=== PATIENT | female | born 1955 | race Caucasian/White ===

== ENCOUNTER 2019-01-23 10:41 | Day surgery (SDC) | payer OTHER ==
[~2019-01-23 10:41] MED LIST: Lactated Ringers 1,000 ML IV SCH
--- NOTE | 2019-01-23 11:41 | PCM.PREANE ---
Preanesthetic Assessment - Anesthesia/Transfusion/Family Hx Anesthesia History: Prior Anesthesia Without Reaction Family History of Anesthesia Reaction: No Transfusion History: Unknown - Review of Systems General: No Symptoms Pulmonary: No Symptoms Cardiovascular: No Symptoms Gastrointestinal: No Symptoms Neurological: No Symptoms Other: Reports: None - Physical Assessment NPO Status Date: 01/23/19 NPO Status Time: 09:00 O2 Sat by Pulse Oximetry: 98 Respiratory Rate: 16 Vital Signs: Last Vital Signs Temp 96.1 F 01/23/19 10:55 Pulse 96 01/23/19 10:55 Resp 16 01/23/19 10:55 BP 167/86 H 01/23/19 10:55 Pulse Ox 98 01/23/19 10:55 Height: 5 ft 1 in Weight: 107.955 kg ASA Class: 2 Mental Status: Alert & Oriented x3 Airway Class: Mallampati = 2 Dentition: Reports: Normal Dentition ROM/Head Extension: Full Lungs: Clear to Auscultation, Normal Respiratory Effort Cardiovascular: Regular Rate, Regular Rhythm - Allergies Allergies/Adverse Reactions: Allergies Allergy/AdvReac Type Severity Reaction Status Date / Time No Known Allergies Allergy Verified 01/20/19 10:53 - Blood Blood Available: No - Anesthesia Plan Pre-Op Medication Ordered: None - Acknowledgements Anesthesia Type Planned: General Anesthesia Pt an Appropriate Candidate for the Planned Anesthesia: Yes Alternatives and Risks of Anesthesia Discussed w Pt/Guardian: Yes Pt/Guardian Understands and Agrees with Anesthesia Plan: Yes Additional Comments: anes prob list: dm2, htn, PLAN: tiva PreAnesthesia Questionnaire HEENT History: Reports: Allergic Rhinitis, Other (See Below) Other HEENT History: wears glasses, recurrent sinus infection Cardiovascular History: Reports: Hypertension Respiratory History: Reports: Asthma, Other (See Below) Other Respiratory History: seasonall asthma due to sinus infections Gastrointestinal History: Reports: GERD, Helicobacter Pylori, Irritable Bowel Syndrome Genitourinary History: Reports: 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: Musculoskeletal History: Reports: Back Pain, Chronic Neurological History: Reports: Concussion Psychiatric History: Reports: Anxiety, Depression Endocrine/Metabolic History: Reports: Diabetes, Type II, Hypothyroidism, Obesity /BMI 30+ Hematologic History: Reports: Other (See Below) Other Hematologic History: unknown if blood transfusion, "may have had transfusion with my hysterectomy" Immunologic History: Reports: None Oncologic (Cancer) History: Reports: None Dermatologic History: Reports: Eczema - Past Surgical History Head Surgeries/Procedures: Reports: None HEENT Surgical History: Reports: Adenoidectomy, Tonsillectomy Cardiovascular Surgical History: Reports: None Respiratory Surgical History: Reports: None GI Surgical History: Reports: Colonoscopy Female Surgical History: Reports: D&C, Hysterectomy Endocrine Surgical History: Reports: None Neurological Surgical History: Reports: None Musculoskeletal Surgical History: Reports: Carpal Tunnel Oncologic Surgical History: Reports: None Dermatological Surgical History: Reports: None - SUBSTANCE USE Smoking Status *Q: Never Smoker Recreational Drug Use History: No - HOME MEDS Home Medications: Home Meds Albuterol Sulfate [Proair Hfa] 1 - 2 puff INH ASDIRECTED PRN 01/20/19 [History] Cetirizine [ZyrTEC] 10 mg PO DAILY 01/20/19 [History] Cholecalciferol (Vitamin D3) [Vitamin D3] 2,000 units PO DAILY 01/20/19 [History ] Ibuprofen 1 - 2 tab PO ASDIRECTED PRN 01/20/19 [History] Krill/Om-3/DHA/EPA/Phospho/Ast [Krill Oil 1,000 mg Softgel] 1 tab PO DAILY 01/20 [History] Levothyroxine Sodium [Levoxyl] 50 mcg PO DAILY 01/20/19 [History] Losartan Potassium 100 mg PO DAILY 01/20/19 [History] [place]-3S/DHA/Epa/Fish Oil [Fish Oil [place]-3 Softgel] 1 tab PO DAILY 01/20/19 [ History] atorvaSTATin Calcium [Atorvastatin Calcium] 20 mg PO DAILY 01/20/19 [History] metFORMIN HCl [Metformin HCl] 1,000 mg PO BID 01/20/19 [History] - CURRENT (IN HOUSE) MEDS Current Meds: Current Medications Lactated Ringer's (Ringers, Lactated) 1,000 mls @ 125 mls/hr IV ASDIRECTED CL Last Admin: 01/23/19 11:10 Dose: 125 mls/hr
[2019-01-23] MEDS ORDERED: Propofol 200 MG/20 ML SDV ONE (12:00)
[2019-01-23] MEDS ORDERED: fentaNYL 100 MCG/2 ML SDV ONE (12:07)
[2019-01-23] MEDS ORDERED: Midazolam 1 MG/ML 2 ML SDV ONE (12:07)
--- NOTE | 2019-01-23 12:52 | PCM.OPNOTE ---
- General Post-Op/Procedure Note Date of Surgery/Procedure: 01/23/19 Operative Procedure(s): Colonoscopy with cold transverse colon and ascending colon, polypectomies Pre Op Diagnosis: Change in bowel habits. Desire for colorectal cancer screening. Post-Op Diagnosis: Ascending colon and transverse colon polyps Anesthesia Technique: MAC (ASA II) Primary Surgeon: Arnulfo Khoury Condition: Good Free Text/Narrative:: DICTATION 517388 CPT CODE 43564
[2019-01-23] MEDS ORDERED: Lactated Ringers 1,000 ML IV SCH (13:00)
--- NOTE | 2019-01-23 13:52 | PCM48HPAN ---
Post Anesthesia Note - EVALUATION WITHIN 48HRS OF ANESTHETIC Vital Signs in Normal Range: Yes Patient Participated in Evaluation: Yes Respiratory Function Stable: Yes Airway Patent: Yes Cardiovascular Function Stable: Yes Hydration Status Stable: Yes Pain Control Satisfactory: Yes Nausea and Vomiting Control Satisfactory: Yes Mental Status Recovered: Yes Resp Rate: 16
--- NOTE | 2019-01-23 13:52 | PCM.POSTAN ---
POST ANESTHESIA ASSESSMENT - MENTAL STATUS Mental Status: Alert, Oriented - RESPIRATORY Respiratory Status: Respiratory Rate WNL, Airway Patent, O2 Saturation Stable - CARDIOVASCULAR CV Status: Pulse Rate WNL, Blood Pressure Stable - GASTROINTESTINAL GI Status: No Symptoms - POST OP HYDRATION Hydration Status: Adequate & Stable
--- NOTE | 2019-01-23 18:17 | OR ---
SURGEON: Arnulfo Khoury M.D. DATE OF PROCEDURE: 01/23/2019 OPERATION PERFORMED: Colonoscopy with cold transverse colon and ascending colon polypectomies. ANESTHESIA: MAC. ASA CLASSIFICATION: 2. PREOPERATIVE DIAGNOSES: 1. Change in bowel habits. 2. Desire for colorectal cancer screening. POSTOPERATIVE DIAGNOSIS: Transverse colon and ascending colon polyps. DESCRIPTION OF PROCEDURE: The patient was taken to the endoscopy room and positioned on the endoscopy table in the left lateral decubitus position. Time-out was called for appropriate identification of the patient and procedure. Monitored anesthesia care was provided. The colonoscope was inserted into the rectum and advanced with minimal difficulty to the cecum where the colonoscope was retroflexed to visualize the ascending colon from below. The colonoscope was then straightened and slowly withdrawn. Two polyps were encountered in the ascending colon in the same area and removed with the cold biopsy forceps. The remainder of the ascending colon, proximal and mid transverse colon showed no tumors, polyps, or diverticula. One small polyp was encountered in the transverse colon and likewise removed with the cold biopsy forceps. The remainder of the transverse colon, splenic flexure, descending colon, sigmoid colon, and rectum showed no tumors, polyps, diverticula, or angiodysplastic changes. Once the colonoscope was withdrawn to the rectum, it was retroflexed to visualize the anal orifice from above. Again, no tumors or polyps were seen and there were no acute hemorrhoidal changes. The colonoscope was then straightened, the rectum aspirated, and the colonoscope removed. The patient tolerated the procedure well and was taken to recovery room in stable condition. CRYSTAL / MARIAM /[id number]
== END 2019-01-23 13:55 | disposition home or self-care (01) ==
LOC: MW.SDS 10:41
PROVIDERS: ATTEND Surgery
DX: D12.3 Benign neoplasm of transverse colon (principal); D12.2 Benign neoplasm of ascending colon; I10 Essential (primary) hypertension; E11.9 Type 2 diabetes mellitus without complications; E03.9 Hypothyroidism, unspecified; E78.5 Hyperlipidemia, unspecified; F32.9 Major depressive disorder, single episode, unspecified; J45.909 Unspecified asthma, uncomplicated; E66.9 Obesity, unspecified; Z68.41 Body mass index [BMI] 40.0-44.9, adult; Z79.84 Long term (current) use of oral hypoglycemic drugs; Z79.899 Other long term (current) drug therapy
CPT/HCPCS: J2250; J2704; J3010; J7120

== ENCOUNTER 2021-01-25 08:30 | Inpatient (IN) | payer OTHER ==
[~2021-01-25 08:30] MED LIST changes: +Albuterol 0.083% 2.5 MG/3 ML Neb Soln NEB PRN; +Famotidine 20 MG/2 ML SDV IVPUSH SCH; +Famotidine 20 MG/2 ML SDV ONE; +HYDROmorphone 2 MG/ML Syringe IVPUSH PRN; -Lactated Ringers 1,000 ML IV SCH; +Metoclopramide 10 MG/2 ML SDV IVPUSH PRN; +Morphine 10 MG/ML Syringe IVPUSH PRN; +Naloxone 0.4 MG/ML Syringe IVPUSH PRN; +Ondansetron 4 MG/2 ML SDV IVPUSH PRN; +Ropivacaine 49.25 ML, Ketorolac 30 MG, EPINEPHrine 0.5 MG, cloNIDine 80 MCG in Sodium C... INJECT SCH; +Scopolamine 1.5 MG Transdermal Patch TRDERM SCH; +Tranexamic Acid 1,000 MG in Sodium Chloride 0.9% 100 ML IV ONE; +ceFAZolin 2 GM in Premix Bag 1 BAG IV SCH; +fentaNYL 100 MCG/2 ML SDV IVPUSH PRN
[2021-01-25] MEDS ORDERED: Glycopyrrolate 0.2 MG/ML SDV ONE (08:45)
[2021-01-25] MEDS ORDERED: Metoclopramide 10 MG/2 ML SDV ONE (08:45)
[2021-01-25] MEDS ORDERED: Ondansetron 4 MG/2 ML SDV ONE (08:45)
[2021-01-25] MEDS ORDERED: Dexamethasone 4 MG/ML 5 ML MDV ONE (08:45)
[2021-01-25] MEDS ORDERED: propofoL 100 ML ONE (08:45)
[2021-01-25] MEDS ORDERED: Ketorolac 30 MG/ML SDV ONE (08:45)
[2021-01-25] MEDS ORDERED: Dexmedetomidine 200 MCG/2 ML SDV ONE (08:45)
[2021-01-25] MEDS ORDERED: Ketamine 500 mg/10 ML MDV ONE (08:46)
[2021-01-25] MEDS ORDERED: EPINEPHrine 1 MG/ML SDV ONE (08:46)
[2021-01-25] MEDS ORDERED: Sodium Chloride 0.9% 20 ML ONE (08:52)
[2021-01-25] MEDS ORDERED: Bupivacaine 0.5% 30 ML SDV ONE (08:58)
[2021-01-25] MEDS ORDERED: Morphine 10 MG/ML Syringe ONE (08:59)
[2021-01-25] MEDS: Lactated Ringers 1,000 ML IV SCH ×2 (09:08→15:50)
--- NOTE | 2021-01-25 09:15 | PCM.PREANE ---
Preanesthetic Assessment - Anesthesia/Transfusion/Family Hx Anesthesia History: Prior Anesthesia Without Reaction Family History of Anesthesia Reaction: No Transfusion History: No Prior Transfusion(s) - Review of Systems General: No Symptoms Pulmonary: No Symptoms Cardiovascular: Dyspnea on Exertion Gastrointestinal: Diarrhea Neurological: No Symptoms Other: Reports: Thyroid Problems, Anxiety - Physical Assessment NPO Status Date: 01/25/21 NPO Status Time: 00:00 Height: 5 ft 1 in Weight: 232 lb ASA Class: 3 Mental Status: Alert & Oriented x3 Airway Class: Mallampati = 2 Dentition: Reports: Normal Dentition Thyro-Mental Finger Breadths: 2 Mouth Opening Finger Breadths: 3 ROM/Head Extension: Full Lungs: Clear to Auscultation, Normal Respiratory Effort Cardiovascular: Regular Rate, Regular Rhythm - Allergies Allergies/Adverse Reactions: Allergies Allergy/AdvReac Type Severity Reaction Status Date / Time No Known Allergies Allergy Verified 01/19/21 07:21 - Blood Blood Available: Yes Product(s) Available: PRBC - Anesthesia Plan Pre-Op Medication Ordered: Other - Acknowledgements Anesthesia Type Planned: General Anesthesia Pt an Appropriate Candidate for the Planned Anesthesia: Yes Alternatives and Risks of Anesthesia Discussed w Pt/Guardian: Yes Pt/Guardian Understands and Agrees with Anesthesia Plan: Yes PreAnesthesia Questionnaire HEENT History: Reports: Allergic Rhinitis, Other (See Below) Other HEENT History: wears glasses, recurrent sinus infection Cardiovascular History: Reports: Hypertension Respiratory History: Reports: Asthma, Other (See Below) Other Respiratory History: seasonall asthma due to sinus infections Gastrointestinal History: Reports: GERD, Helicobacter Pylori, Irritable Bowel Syndrome Genitourinary History: Reports: 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: Musculoskeletal History: Reports: Back Pain, Chronic Other Musculoskeletal History: intermittent back pain, DJD Neurological History: Reports: Concussion Psychiatric History: Reports: Anxiety, Depression Endocrine/Metabolic History: Reports: Diabetes, Type II, Hypothyroidism, Obesity/BMI 30+ Hematologic History: Reports: Other (See Below) Other Hematologic History: unknown if blood transfusion, "may have had transfusion with my hysterectomy" Immunologic History: Reports: None Oncologic (Cancer) History: Reports: None Dermatologic History: Reports: Eczema - Past Surgical History Head Surgeries/Procedures: Reports: None HEENT Surgical History: Reports: Adenoidectomy, Tonsillectomy Cardiovascular Surgical History: Reports: None Respiratory Surgical History: Reports: None GI Surgical History: Reports: Colonoscopy Female Surgical History: Reports: D&C, Hysterectomy Endocrine Surgical History: Reports: None Neurological Surgical History: Reports: None Musculoskeletal Surgical History: Reports: Carpal Tunnel Oncologic Surgical History: Reports: None Dermatological Surgical History: Reports: None - SUBSTANCE USE Tobacco Use Status *Q: Never Tobacco User - HOME MEDS Home Medications: Home Meds Cetirizine [ZyrTEC] 10 mg PO DAILY 01/20/19 [History] Cholecalciferol (Vitamin D3) [Vitamin D3] 2,000 units PO DAILY 01/20/19 [History] Krill/Om-3/DHA/EPA/Phospho/Ast [Krill Oil 1,000 mg Softgel] 1 tab PO DAILY 01/20/19 [History] Levothyroxine Sodium [Levoxyl] 75 mcg PO ASDIRECTED 01/20/19 [History] Losartan Potassium 100 mg PO DAILY 01/20/19 [History] metFORMIN HCl [Metformin HCl] 1,000 mg PO BID 01/20/19 [History] Areds 2 1 tab PO DAILY 01/19/21 [History] Citalopram Hydrobromide [Celexa] 20 mg PO DAILY 01/19/21 [History] Levothyroxine Sodium [Levoxyl] 50 mcg PO ASDIRECTED 01/19/21 [History] atorvaSTATin Calcium [Atorvastatin Calcium] 20 mg PO DAILY 01/19/21 [History] - CURRENT (IN HOUSE) MEDS Current Meds: Current Medications Albuterol (Albuterol 0.083% 2.5 Mg/3 Ml Neb Soln) 2.5 mg NEB ONETIME PRN PRN Reason: Wheezing Droperidol (Droperidol 5 Mg/2 Ml Sdv) 0.625 mg IVPUSH ONETIME PRN PRN Reason: Nausea/Vomiting Famotidine (Famotidine 20 Mg/2 Ml Sdv) 40 mg IVPUSH ONARRIVE CL Fentanyl (Fentanyl 100 Mcg/2 Ml Sdv) 50 mcg IVPUSH Q5M PRN PRN Reason: Pain (mild 1-3) Hydromorphone HCl (Hydromorphone 2 Mg/Ml Syringe) 1 mg IVPUSH Q10M PRN PRN Reason: Pain (moderate 4-6) Ropivacaine 49.25 ml/Ketorolac Tromethamine 30 mg/Epinephrine HCl 0.5 mg/Clonidine HCl 80 mcg/ Sodium Chloride 75 mls @ 50 mls/sec INJECT ASDIRECTED [facility] Cefazolin Sodium/Dextrose 2 gm (/ Premix) 50 mls @ 100 mls/hr IV ONCALL [facility] Lactated Ringer's (Ringers, Lactated) 1,000 mls @ 100 mls/hr IV ASDIRECTED [facility] Last Admin: 01/25/21 09:08 Dose: 100 mls/hr Documented by: Metoclopramide HCl (Metoclopramide 10 Mg/2 Ml Sdv) 10 mg IVPUSH ONETIME PRN PRN Reason: Nausea/Vomiting Morphine Sulfate (Morphine 10 Mg/Ml Syringe) 2 mg IVPUSH Q10M PRN PRN Reason: Pain (severe 7-10) Naloxone HCl (Naloxone 0.4 Mg/Ml Syringe) 0.1 mg IVPUSH ASDIRECTED PRN PRN Reason: Respiratory Depression Ondansetron HCl (Ondansetron 4 Mg/2 Ml Sdv) 4 mg IVPUSH ONETIME PRN PRN Reason: Nausea/Vomiting Scopolamine (Scopolamine 1.5 Mg Transdermal Patch) 1.5 mg TRDER ONARRIVE [facility] Last Admin: 01/25/21 09:08 Dose: 1.5 mg Documented by: Discontinued Medications Bupivacaine HCl (Bupivacaine 0.5% 30 Ml Sdv) Confirm Administered Dose 60 ml .ROUTE .STK-MED ONE Stop: 01/25/21 08:59 Dexamethasone (Dexamethasone 4 Mg/Ml 5 Ml Mdv) Confirm Administered Dose 20 mg .ROUTE .STK-MED ONE Stop: 01/25/21 08:46 Dexmedetomidine HCl (Dexmedetomidine 200 Mcg/2 Ml Sdv) Confirm Administered Dose 200 mcg .ROUTE .STK-MED ONE Stop: 01/25/21 08:46 Epinephrine HCl (Epinephrine 1 Mg/Ml Sdv) Confirm Administered Dose 1 mg .ROUTE .STK-MED ONE Stop: 01/25/21 08:47 Famotidine (Famotidine 20 Mg/2 Ml Sdv) Confirm Administered Dose 40 mg .ROUTE .STK-MED ONE Stop: 01/25/21 07:50 Glycopyrrolate (Glycopyrrolate 0.2 Mg/Ml Sdv) Confirm Administered Dose 0.2 mg .ROUTE .STK-MED ONE Stop: 01/25/21 08:46 Tranexamic Acid 1,000 mg/ (Sodium Chloride) 110 mls @ 600 mls/hr IV ASDIRECTED ONE Stop: 01/25/21 08:10 Acetaminophen (Ofirmev 1000 Mg/100 Ml) Confirm Administered Dose 100 mls @ as directed .ROUTE .STK-MED ONE Stop: 01/25/21 08:46 Propofol (Diprivan 100 Ml) Confirm Administered Dose 100 mls @ as directed .ROUTE .STK-MED ONE Stop: 01/25/21 08:46 Sodium Chloride (Normal Saline) Confirm Administered Dose 20 mls @ as directed .ROUTE .STK-MED ONE Stop: 01/25/21 08:53 Ketamine HCl (Ketamine 500 Mg/10 Ml Mdv) Confirm Administered Dose 500 mg .ROUTE .STK-MED ONE Stop: 01/25/21 08:47 Ketorolac Tromethamine (Ketorolac 30 Mg/Ml Sdv) Confirm Administered Dose 30 mg .ROUTE .STK-MED ONE Stop: 01/25/21 08:46 Lidocaine HCl (Lidocaine 1% 5 Ml Sdv) Confirm Administered Dose 10 ml .ROUTE .STK-MED ONE Stop: 01/25/21 08:46 Metoclopramide HCl (Metoclopramide 10 Mg/2 Ml Sdv) Confirm Administered Dose 10 mg .ROUTE .STK-MED ONE Stop: 01/25/21 08:46 Morphine Sulfate (Morphine 10 Mg/Ml Syringe) Confirm Administered Dose 10 mg .ROUTE .STK-MED ONE Stop: 01/25/21 09:00 Ondansetron HCl (Ondansetron 4 Mg/2 Ml Sdv) Confirm Administered Dose 4 mg .ROUTE .STK-MED ONE Stop: 01/25/21 08:46
--- NOTE | 2021-01-25 13:17 | PCM.OPNOTE ---
- General Post-Op/Procedure Note Date of Surgery/Procedure: 01/25/21 Operative Procedure(s): Right total knee replacement using [employer] knee system Findings: Right knee grade 4 medial compartment osteoarthritis with complete loss of cartilage, eburnated bone, marginal osteophytes. Patellofemoral joint showed grade 1 changes of the patella with small marginal osteophytes. Pre Op Diagnosis: Right knee grade 4 medial compartment osteoarthritis Post-Op Diagnosis: Right knee grade 4 medial compartment osteoarthritis Anesthesia Technique: Regional Block, Spinal Primary Surgeon: Lakhwinder Tracy Aws Solution Architect: Jacki Le Aws Solution Architect Was Necessary: Patient positioning and retraction during surgery Pathology: Bone cuts to pathology EBL in mLs: 25 Complications: None Condition: Good Free Text/Narrative:: Patient is a 65-year-old female with severe right knee medial compartment osteoarthritis. She has failed nonoperative management. We discussed the risks and benefits of total knee replacement surgery. All questions were answered. Patient elected to proceed with surgery and consented to the procedure. Patient was medically clear for surgery. Patient was taken to the operating room. After adequate spinal anesthesia she was placed in a supine position. A tourniquet is placed around the right proximal thigh. The right lower extremities prepped and draped in usual sterile manner. The leg elevated the tourniquet inflated. Skin was incised with a scalpel for a midline incision centered over the patella and just medial to the tibial tubercle. Subtenons tissue was incised electrocautery. A medial parapatellar arthrotomy was performed. The patella was everted and retracted laterally. Soft tissues were excised. The distal femoral cut was made with an intramedullary alignment guide. The f emur was sized to a size 2. The distal femoral cuts were then made with a constrained cutting guide. The trial component was too wide so a #2 narrow component was used. Lug holes were punched. The tibia was cut with a intramedullary alignment guide. The tibia was sized to a size 2. The keel and stem were punched. 9 mm polyethylene showed that the knee had good range of motion and stability throughout the range of motion. Cruciate retaining components were used. The patella did not require resurfacing as there were only grade 1 changes. The patella tracked well. Marginal osteophytes were removed with a rongeur. Trial components were removed. The surfaces were pulse lavaged. Components were then sequentially cemented with antibiotic cement. #2 tibia was inserted and excess cement removed. The 9 mm polyethylene component was locked in place. The #2 tibia was then cemented and excess cement removed. The knee was brought into extension to allow the cement to harden. Once the cemented hardened, the knee was reinspected and any excess cement removed. The knee was again pulse lavaged. The retinaculum and quadriceps tendon were repaired with interrupted running #1 Vicryl suture. Subcutaneous tissue was closed with interrupted 2-0 Vicryl suture. Skin was closed with a running 3-0 Monocryl subcuticular suture. A sterile dressing was applied. Patient was accompanied to the recovery room in stable condition. Pain medication: Ibuprofen or Toradol, acetaminophen, oxycodone Venous thromboembolism prophylaxis: Aspirin 162 mg enteric-coated p.o. daily for 90 days Prophylactic biotics: Ancef IV for 2 doses and then oral antibiotics for 1 to 2 weeks until incision is healed based on risk of BMI and diabetes Restrictions: Patient is weightbearing as tolerated on her right lower extremi ty. She will receive physical therapy according to the total knee arthroplasty protocol. She has no specific restrictions.
[2021-01-25] MEDS ORDERED: Aluminum Hydroxide/Magnesium Hydroxide/Simethicone Susp 30 ML Cup PO PRN (13:24)
[2021-01-25] MEDS ORDERED: Sodium Chloride 0.9% 10 ML Syringe FLUSH PRN (13:24)
[2021-01-25] MEDS ORDERED: Sodium Chloride 0.9% 2.5 ML Syringe FLUSH PRN (13:24)
[2021-01-25] MEDS ORDERED: Docusate Sodium 100 MG Cap PO PRN (13:24)
[2021-01-25] MEDS ORDERED: Ondansetron 4 MG/2 ML SDV IVPUSH PRN (13:24)
[2021-01-25] MEDS ORDERED: diphenhydrAMINE 25 MG Cap PO PRN (13:24)
[2021-01-25] MEDS ORDERED: Bisacodyl 10 MG Supp RECTAL PRN (13:24)
[2021-01-25] MEDS ORDERED: traMADol 50 MG Tab PO PRN (13:24)
[2021-01-25] MEDS ORDERED: Morphine 2 MG/ML SYRINGE IVPUSH PRN (13:24)
--- NOTE | 2021-01-25 13:27 | PCM.POSTAN ---
POST ANESTHESIA ASSESSMENT - MENTAL STATUS Mental Status: Alert, Oriented - VITAL SIGNS Vital Signs: Last Vital Signs Temp Pulse 83 01/25/21 08:41 Resp 15 01/25/21 08:41 BP 141/77 H 01/25/21 08:41 Pulse Ox 96 01/25/21 08:41 - RESPIRATORY Respiratory Status: Respiratory Rate WNL, Airway Patent, O2 Saturation Stable - CARDIOVASCULAR CV Status: Pulse Rate WNL, Blood Pressure Stable - GASTROINTESTINAL GI Status: No Symptoms - POST OP HYDRATION Hydration Status: Adequate & Stable
--- NOTE | 2021-01-25 13:28 | PCM48HPAN ---
Post Anesthesia Note - EVALUATION WITHIN 48HRS OF ANESTHETIC Vital Signs in Normal Range: Yes Patient Participated in Evaluation: Yes Respiratory Function Stable: Yes Airway Patent: Yes Cardiovascular Function Stable: Yes Hydration Status Stable: Yes Pain Control Satisfactory: Yes Nausea and Vomiting Control Satisfactory: Yes Mental Status Recovered: Yes Vital Signs: Last Vital Signs Temp 37.1 C 01/25/21 13:15 Pulse 89 01/25/21 13:25 Resp 13 01/25/21 13:25 BP 104/43 L 01/25/21 13:25 Pulse Ox 94 L 01/25/21 13:25
--- NOTE | 2021-01-25 14:39 | PCM.CONS ---
H&P History of Present Illness - General Date of Service: 01/25/21 Admit Problem/Dx: s/p Right TKA Source of Information: Patient History Limitations: Reports: No Limitations - History of Present Illness Initial Comments - Free Text/Narative: This 65-year-old female with past medical history of diabetes type 2, hypothyroidism, HTN and obesity presented today with Dr. Tracy for right total knee replacement. Hospitalist service consulted for medical management. Patient recently arrived to [facility] unit from the PACU. She is alert and oriented feeling well. Nursing reports blood pressures have been on the softer side since arrival. She denies any chest pain shortness of breath abdominal pain mild lightheadedness but no dizziness. She denies any headache or blurred vision. Family at bedside. She is reporting she has a XipLink continuous glucose monitor which has been showing good blood sugar since arrival. She reports that she has been stable on Metformin and diet control at home with an A1c of 6.9. Denies any medical history of CAD or CVA. Denies any history of bleeding or blood clots. - Related Data Allergies/Adverse Reactions: Allergies Allergy/AdvReac Type Severity Reaction Status Date / Time No Known Allergies Allergy Verified 01/19/21 07:21 Home Medications: Home Meds Cetirizine [ZyrTEC] 10 mg PO DAILY 01/20/19 [History] Cholecalciferol (Vitamin D3) [Vitamin D3] 2,000 units PO DAILY 01/20/19 [History] Krill/Om-3/DHA/EPA/Phospho/Ast [Krill Oil 1,000 mg Softgel] 1 tab PO DAILY 01/20/19 [History] Levothyroxine Sodium [Levoxyl] 50 mcg PO Q2D 01/20/19 [History] Losartan Potassium 100 mg PO DAILY 01/20/19 [History] metFORMIN HCl [Metformin HCl] 1,000 mg PO BID 01/20/19 [History] Areds 2 1 tab PO DAILY 01/19/21 [History] Citalopram Hydrobromide [Celexa] 20 mg PO DAILY 01/19/21 [History] Levothyroxine Sodium [Levoxyl] 50 mcg PO ASDIRECTED 01/19/21 [History] atorvaSTATin Calcium [Atorvastatin Calcium] 20 mg PO DAILY 01/19/21 [History] Aspirin 325 mg PO DAILY #90 tablet 01/25/21 [Rx] Cefadroxil [Duricef] 500 mg PO BID 7 Days #14 cap 01/25/21 [Rx] Ibuprofen [Motrin] 800 mg PO Q8H #60 tablet 01/25/21 [Rx] Levothyroxine 75 mcg PO Q2D 01/25/21 [History] Past Medical History HEENT History: Reports: Allergic Rhinitis, Other (See Below) Other HEENT History: wears glasses, recurrent sinus infection Cardiovascular History: Reports: Hypertension Respiratory History: Reports: Asthma, Other (See Below) Other Respiratory History: seasonall asthma due to sinus infections Gastrointestinal History: Reports: GERD, Helicobacter Pylori, Irritable Bowel Syndrome Genitourinary History: Reports: None [employer] History: Reports: Musculoskeletal History: Reports: Back Pain, Chronic Other Musculoskeletal History: intermittent back pain, DJD Neurological History: Reports: Concussion Psychiatric History: Reports: Anxiety, Depression Endocrine/Metabolic History: Reports: Diabetes, Type II, Hypothyroidism, Obesity/BMI 30+ Hematologic History: Reports: Other (See Below) Other Hematologic History: unknown if blood transfusion, "may have had transfusion with my hysterectomy" Immunologic History: Reports: None Oncologic (Cancer) History: Reports: None Dermatologic History: Reports: Eczema - Past Surgical History Head Surgeries/Procedures: Reports: None HEENT Surgical History: Reports: Adenoidectomy, Tonsillectomy Cardiovascular Surgical History: Reports: None Respiratory Surgical History: Reports: None GI Surgical History: Reports: Colonoscopy Female Surgical History: Reports: D&C, Hysterectomy Endocrine Surgical History: Reports: None Neurological Surgical History: Reports: None Musculoskeletal Surgical History: Reports: Carpal Tunnel Oncologic Surgical History: Reports: None Dermatological Surgical History: Reports: None Social & Family History - Tobacco Use Tobacco Use Status *Q: Never Tobacco User - Recreational Drug Use Drug Use in Last 12 Months: No H&P Review of Systems - Review of Systems: Review Of Systems: See Below General: Reports: No Symptoms. Denies: Fever, Chills, Malaise, Weakness HEENT: Reports: No Symptoms. Denies: Headaches, Sinus Congestion, Vertigo, Visual Changes Pulmonary: Reports: No Symptoms. Denies: Shortness of Breath Cardiovascular: Reports: Lightheadedness, Blood Pressure Problem (Reports blood pressure does dip low at home intermittently but otherwise no other concerns). Denies: Chest Pain, Edema Gastrointestinal: Reports: No Symptoms. Denies: Abdominal Pain, Black Stool, Bloody Stool, Nausea, Vomiting Genitourinary: Reports: No Symptoms. Denies: Dysuria, Frequency, Burning Musculoskeletal: Reports: No Symptoms Skin: Reports: No Symptoms Psychiatric: Reports: No Symptoms Neurological: Reports: No Symptoms Hematologic/Lymphatic: Reports: No Symptoms Immunologic: Reports: No Symptoms Exam - Exam Exam: See Below - Vital Signs Vital Signs: Last Vital Signs Temp 98.8 F 01/25/21 13:15 Pulse 70 01/25/21 13:45 Resp 20 01/25/21 13:45 BP 99/36 L 01/25/21 13:45 Pulse Ox 94 L 01/25/21 14:29 Weight: 105.233 kg - Exam Quality Assessment: DVT Prophylaxis. No: Supplemental Oxygen General: Alert, Oriented, Cooperative HEENT: Conjunctiva Clear, Mucosa Moist & [place], Posterior Pharynx Clear Lungs: Clear to Auscultation, Normal Respiratory Effort Cardiovascular: Regular Rate, Regular Rhythm, Normal S1 GI/Abdominal Exam: Normal Bowel Sounds, Soft, Non-Tender Extremities: Normal Inspection, Normal Range of Motion, Non-Tender, No Pedal Edema Skin: Warm, Dry, Incision (Polar ice and Alexander bandage intact) Neuro Extensive - Mental Status: Alert, Oriented x3 Psychiatric: Alert, Normal Affect, Normal Mood - Patient Data Lab Results Last 24 hrs: Laboratory Results - last 24 hr 01/25/21 Range/Units 09:06 Blood Type O POSITIVE Antibody Screen NEGATIVE Result Diagrams: 01/25/21 14:40 Sepsis Event Note - Focused Exam Vital Signs: Vital Signs Temp Pulse Resp BP Pulse Ox Pulse Ox 01/25/21 14:29 94 L 01/25/21 13:45 70 20 99/36 L 97 01/25/21 13:40 74 12 101/46 L 98 01/25/21 13:35 77 15 95/46 L 96 01/25/21 13:30 83 14 100/38 L 94 L 01/25/21 13:25 89 13 104/43 L 94 L 01/25/21 13:20 88 14 98/42 L 94 L 01/25/21 13:15 98.8 F 97 14 117/43 L 94 L 01/25/21 08:41 83 15 141/77 H 96 Consult PN Assessment/Plan POD#: 0 Procedures: Procedures ASSAY THYROID STIM HORMONE (12/13/20) COLONOSCOPY AND BIOPSY (01/23/19) COMP SCREEN MAMMOGRAM ADD-ON (08/04/15) COMPLETE CBC AUTOMATED (01/02/21) COMPREHEN METABOLIC PANEL (12/13/20) CULTURE OTHR SPECIMN AEROBIC (01/02/21) DXA BONE DENSITY AXIAL (01/18/21) GLYCOSYLATED HEMOGLOBIN TEST (01/02/21) HT MUSCLE IMAGE SPECT MULT (08/04/15) LIPID PANEL (12/13/20) METABOLIC PANEL TOTAL CA (01/02/21) MRI JNT OF LWR EXTRE W/O DYE (01/18/20) PROTHROMBIN TIME (01/02/21) ROUTINE VENIPUNCTURE (01/02/21) SCR MAMMO BI INCL CAD (12/04/18) UR ALBUMIN SEMIQUANTITATIVE (12/20/16) URINALYSIS AUTO W/O SCOPE (01/02/21) X-RAY EXAM CHEST 2 VIEWS (01/02/21) X-RAY EXAM KNEE 4 OR MORE (12/21/16) X-RAY EXAM OF KNEE 1 OR 2 (12/13/20) X-RAY EXAM OF KNEE 3 (01/07/20) (1) DM type 2 (diabetes mellitus, type 2) SNOMED Code(s): 11345207 Code(s): E11.9 - TYPE 2 DIABETES MELLITUS WITHOUT COMPLICATIONS Current Visit: Yes (2) Status post total knee replacement SNOMED Code(s): 7106610120407, 656263980, 6513423137215 Code(s): Z96.659 - PRESENCE OF UNSPECIFIED ARTIFICIAL KNEE JOINT Current Visit: Yes (3) Obesity SNOMED Code(s): 938253662, 383705663 Code(s): E66.9 - OBESITY, UNSPECIFIED Current Visit: Yes (4) Hypothyroidism SNOMED Code(s): 43282232 Code(s): E03.9 - HYPOTHYROIDISM, UNSPECIFIED Current Visit: Yes (5) HTN (hypertension) SNOMED Code(s): 17830514 Code(s): I10 - ESSENTIAL (PRIMARY) HYPERTENSION Current Visit: Yes Qualifiers: Hypertension type: essential hypertension Qualified Code(s): I10 - Essential (primary) hypertension Problem List Initiated/Reviewed/Updated: Yes My Orders Last 24 Hours: My Active Orders 01/25/21 14:22 BASIC METABOLIC PANEL,BMP [CHEM] Routine CBC WITH AUTO DIFF [HEME] Routine MAGNESIUM [CHEM] Routine Plan: This 65-year female admitted with right total knee replacement hospitalist consulted for medical management 1. Status post right total knee replacement -Orders per orthopedic team 2. DM type II -Well-controlled at home on Metformin and diet control A1c 6.9 -Hold Metformin while in hospital educated that she can restart this upon discharge -NovoLog sliding scale low-dose as needed with each meal -ADA diet 3. Hypertension -Hypotension noted upon arrival back from PACU. -We will give 1 L LR and recheck -Hold antihypertensive medications at this time. -Patient mildly lightheaded -Dr. Seals notified 4. Hypothyroidism: Patient takes levothyroxine 50 mcg every other day followed by 75 mcg the other days -Stable VTE prophylaxis: Aspirin would recommend from pharmacologic agent when deemed appropriate by orthopedics CODE STATUS: Full code
[2021-01-25] MEDS ORDERED: 50% Dextrose in Water 50 ML Syringe IVPUSH PRN (14:41)
[2021-01-25] MEDS ORDERED: Glucagon,Human Recombinant 1 MG Vial IM PRN (14:41)
[2021-01-25] MEDS ORDERED: Lactated Ringers 1,000 ML IV ONE (14:56)
[2021-01-25 15:09] LABS: POTASSIUM,K 4.9 mmol/L (3.5-5.1)
[2021-01-25] MEDS: Ketorolac 30 MG/ML SDV IVPUSH SCH ×3 (15:30→19:09)
[2021-01-25] MEDS ORDERED: Lactated Ringers 500 ML IV ONE (16:28)
--- NOTE | 2021-01-25 17:32 | CR ---
Indication: Post TKA. Technique: Right knee three views. Comparison: None. Findings: Right knee arthroplasty appears appropriately positioned. Osseous structures as imaged are otherwise unremarkable. Anterior soft tissue gas consistent with recent surgery. Soft tissues as imaged are otherwise unremarkable. Impression: Expected changes status post right knee arthroplasty. Dictated by Terrence Moraes MD @ 01/25/2021 5:30:[address] Terrence Moraes @ Jan 25 2021 5:30PM
[2021-01-25] MEDS: ceFAZolin 2 GM in Premix Bag 1 BAG IV SCH (18:16)
[2021-01-25] MEDS: Insulin Aspart 100 Units/ML 3 ML Pen SUBCUT SCH (18:23)
[2021-01-25] MEDS: oxyCODONE 5 MG Tab PO PRN (20:39)
[2021-01-26] MEDS: Ketorolac 30 MG/ML SDV IVPUSH SCH (01:38)
[2021-01-26] MEDS: ceFAZolin 2 GM in Premix Bag 1 BAG IV SCH (02:06)
[2021-01-26 06:12] LABS: CARBON DIOXIDE,CO2 24.5 mmol/L (21.0-32.0); POTASSIUM,K 5.6 mmol/L (3.5-5.1)
[2021-01-26] MEDS ORDERED: Levothyroxine 75 MCG Tab PO SCH (07:00)
--- NOTE | 2021-01-26 08:34 | PCM48HPAN ---
Post Anesthesia Note - EVALUATION WITHIN 48HRS OF ANESTHETIC Vital Signs in Normal Range: Yes Patient Participated in Evaluation: Yes Respiratory Function Stable: Yes Airway Patent: Yes Cardiovascular Function Stable: Yes Hydration Status Stable: Yes Pain Control Satisfactory: Yes Nausea and Vomiting Control Satisfactory: Yes Mental Status Recovered: Yes Vital Signs: Last Vital Signs Temp 96.5 F L 01/26/21 07:32 Pulse 57 L 01/26/21 07:32 Resp 20 01/26/21 07:32 BP 112/54 L 01/26/21 07:32 Pulse Ox 94 L 01/26/21 07:32
[2021-01-26] MEDS ORDERED: Aspirin 325 MG Tab.EC PO SCH (09:00)
[2021-01-26] MEDS ORDERED: Polyethylene Glycol 3350 Powder 17 GM Packet PO SCH (09:00)
[2021-01-26] MEDS ORDERED: Famotidine 20 MG Tab PO SCH (09:00)
[2021-01-26] MEDS ORDERED: Cefadroxil 500 MG Cap PO SCH (09:00)
[2021-01-26] MEDS ORDERED: Ibuprofen 800 MG Tab PO SCH (09:00)
[2021-01-26] MEDS: oxyCODONE 5 MG Tab PO PRN ×2 (09:04→12:08)
[2021-01-26] MEDS: Insulin Aspart 100 Units/ML 3 ML Pen SUBCUT SCH ×2 (09:25→12:32)
--- NOTE | 2021-01-26 09:34 | PCM.CONSN ---
- General Info Date of Service: 01/26/21 Admission Dx/Problem (Free Text): s/p Right TKA Subjective Update: Feeling well today, no chest pain or SOB. No abominal pain. No ambulating yet, still has gained all feeling back. Functional Status: Reports: Pain Controlled, Tolerating Diet, Urinating - Review of Systems General: Reports: No Symptoms. Denies: Weakness, Fatigue, Malaise Pulmonary: Reports: No Symptoms. Denies: Shortness of Breath Cardiovascular: Reports: No Symptoms. Denies: Chest Pain Gastrointestinal: Reports: No Symptoms. Denies: Abdominal Pain, Nausea, Vomiting Genitourinary: Reports: No Symptoms. Denies: Dysuria, Frequency, Burning Musculoskeletal: Reports: No Symptoms Skin: Reports: No Symptoms Neurological: Reports: No Symptoms Psychiatric: Reports: No Symptoms - Patient Data Vitals - Most Recent: Last Vital Signs Temp 96.5 F L 01/26/21 07:32 Pulse 57 L 01/26/21 07:32 Resp 20 01/26/21 07:32 BP 112/54 L 01/26/21 07:32 Pulse Ox 94 L 01/26/21 07:32 Weight - Most Recent: 105.233 kg I&O - Last 24 Hours: Intake & Output 01/25/21 01/26/21 01/26/21 22:59 06:59 14:59 Intake Total 120 840 Output Total 0 400 Balance 120 440 Lab Results Last 24 Hours: Laboratory Results - last 24 hr 01/25/21 01/25/21 01/25/21 Range/Units 09:06 14:40 14:40 WBC 9.24 (4.0-11.0) K/uL RBC 3.91 L (4.30-5.90) M/uL Hgb 10.9 L (12.0-16.0) g/dL Hct 34.8 L (36.0-46.0) % MCV 89.0 (80.0-98.0) fL MCH 27.9 (27.0-32.0) pg MCHC 31.3 (31.0-37.0) g/dL RDW Std Deviation 47.4 (28.0-62.0) fl RDW Coeff of Alissa 15 (11.0-15.0) % Plt Count 310 (150-400) K/uL MPV 8.90 (7.40-12.00) fL Neut % (Auto) 91.6 H (48.0-80.0) % Lymph % (Auto) 6.9 L (16.0-40.0) % [place] % (Auto) 1.1 (0.0-15.0) % Eos % (Auto) 0.2 (0.0-7.0) % Baso % (Auto) 0.2 (0.0-1.5) % Neut # (Auto) 8.5 H (1.4-5.7) K/uL Lymph # (Auto) 0.6 (0.6-2.4) K/uL [place] # (Auto) 0.1 (0.0-0.8) K/uL Eos # (Auto) 0.0 (0.0-0.7) K/uL Baso # (Auto) 0.0 (0.0-0.1) K/uL Nucleated RBC % 0.0 /100WBC Nucleated RBCs # 0 K/uL Sodium 139 (136-145) mmol/L Potassium 4.9 (3.5-5.1) mmol/L Chloride 104 (98-107) mmol/L Carbon Dioxide 25.0 (21.0-32.0) mmol/L BUN 15 (7.0-18.0) mg/dL Creatinine 1.1 H (0.6-1.0) mg/dL Est Cr Clr Drug Dosing 38.99 mL/min Estimated GFR (MDRD) 50.0 ml/min Glucose 195 H (74-106) mg/dL POC Glucose (70-99) mg/dL Calcium 8.8 (8.5-10.1) mg/dL Magnesium 2.1 (1.8-2.4) mg/dL Blood Type O POSITIVE Antibody Screen NEGATIVE 01/25/21 01/26/21 01/26/21 Range/Units 18:14 05:35 05:35 WBC (4.0-11.0) K/uL RBC (4.30-5.90) M/uL Hgb 10.0 L (12.0-16.0) g/dL Hct 31.8 L (36.0-46.0) % MCV (80.0-98.0) fL MCH (27.0-32.0) pg MCHC (31.0-37.0) g/dL RDW Std Deviation (28.0-62.0) fl RDW Coeff of Alissa (11.0-15.0) % Plt Count (150-400) K/uL MPV (7.40-12.00) fL Neut % (Auto) (48.0-80.0) % Lymph % (Auto) (16.0-40.0) % [place] % (Auto) (0.0-15.0) % Eos % (Auto) (0.0-7.0) % Baso % (Auto) (0.0-1.5) % Neut # (Auto) (1.4-5.7) K/uL Lymph # (Auto) (0.6-2.4) K/uL [place] # (Auto) (0.0-0.8) K/uL Eos # (Auto) (0.0-0.7) K/uL Baso # (Auto) (0.0-0.1) K/uL Nucleated RBC % /100WBC Nucleated RBCs # K/uL Sodium 132 L (136-145) mmol/L Potassium 5.6 H (3.5-5.1) mmol/L Chloride 100 (98-107) mmol/L Carbon Dioxide 24.5 (21.0-32.0) mmol/L BUN 19 H (7.0-18.0) mg/dL Creatinine 1.2 H (0.6-1.0) mg/dL Est Cr Clr Drug Dosing 35.74 mL/min Estimated GFR (MDRD) 45.2 ml/min Glucose 149 H (74-106) mg/dL POC Glucose 182 H (70-99) mg/dL Calcium 8.3 L (8.5-10.1) mg/dL Magnesium 1.9 (1.8-2.4) mg/dL Blood Type Antibody Screen Med Orders - Current: Current Medications Al Hydroxide/Mg Hydroxide (Aluminum Hydroxide/Magnesium Hydroxide/Simethicone Susp 30 Ml Cup) 30 ml PO Q4H PRN PRN Reason: Indigestion Aspirin (Aspirin 325 Mg Tab.Ec) 325 mg PO DAILY CL Last Admin: 01/26/21 09:03 Dose: 325 mg Documented by: Bisacodyl (Bisacodyl 10 Mg Supp) 10 mg RECTAL DAILY PRN PRN Reason: Constipation Cefadroxil (Cefadroxil 500 Mg Cap) 500 mg PO BID [facility] Stop: 02/02/21 09:01 Dextrose/Water (50% Dextrose In Water 50 Ml Syringe) 50 ml IVPUSH ASDIRECTED PRN PRN Reason: Hypoglycemia Diphenhydramine HCl (Diphenhydramine 25 Mg Cap) 25 - 50 mg PO Q6H PRN PRN Reason: Itching Docusate Sodium (Docusate Sodium 100 Mg Cap) 100 mg PO Q12HR PRN PRN Reason: Constipation Famotidine (Famotidine 20 Mg/2 Ml Sdv) 40 mg IVPUSH ONARRIVE [facility] Last Admin: 01/25/21 09:10 Dose: 40 mg Documented by: Famotidine (Famotidine 20 Mg Tab) 40 mg PO DAILY [facility] Last Admin: 01/26/21 09:08 Dose: 40 mg Documented by: Glucagon (Glucagon,Human Recombinant 1 Mg Vial) 1 mg IM ASDIRECTED PRN PRN Reason: Hypoglycemia Ropivacaine 49.25 ml/Ketorolac Tromethamine 30 mg/Epinephrine HCl 0.5 mg/Clonidine HCl 80 mcg/ Sodium Chloride 75 mls @ 50 mls/sec INJECT ASDIRECTED [facility] Cefazolin Sodium/Dextrose 2 gm (/ Premix) 50 mls @ 100 mls/hr IV ONCALL [facility] Lactated Ringer's (Ringers, Lactated) 1,000 mls @ 100 mls/hr IV ASDIRECTED [facility] Last Admin: 01/25/21 15:50 Dose: 100 mls/hr Documented by: Ibuprofen (Ibuprofen 800 Mg Tab) 800 mg PO Q8H [facility] Last Admin: 01/26/21 09:03 Dose: 800 mg Documented by: Insulin Aspart (Insulin Aspart 100 Units/Ml 3 Ml Pen) 0 unit SUBCUT TIDAC [facility]; Protocol Last Admin: 01/26/21 09:25 Dose: Not Given Documented by: Levothyroxine Sodium (Levothyroxine 75 Mcg Tab) 75 mcg PO Q2D@0700 [facility] Last Admin: 01/26/21 06:51 Dose: 75 mcg Documented by: Levothyroxine Sodium (Levothyroxine 50 Mcg Tab) 50 mcg PO Q2D@0700 [facility] Morphine Sulfate (Morphine 2 Mg/Ml Syringe) 1 - 2 mg IVPUSH Q3H PRN PRN Reason: Pain Last Admin: 01/25/21 23:30 Dose: 2 mg Documented by: Ondansetron HCl (Ondansetron 4 Mg/2 Ml Sdv) 4 mg IVPUSH Q6H PRN PRN Reason: Nausea/Vomiting Oxycodone HCl (Oxycodone 5 Mg Tab) 5 - 10 mg PO Q4H PRN PRN Reason: Pain Last Admin: 01/26/21 09:04 Dose: 5 mg Documented by: Polyethylene Glycol (Polyethylene Glycol 3350 Powder 17 Gm Packet) 17 gm PO DAILY [facility] Last Admin: 01/26/21 09:08 Dose: Not Given Documented by: Scopolamine (Scopolamine 1.5 Mg Transdermal Patch) 1.5 mg TRDERM ONARRIVE [facility] Last Admin: 01/25/21 09:08 Dose: 1.5 mg Documented by: Sodium Chloride (Sodium Chloride 0.9% 10 Ml Syringe) 10 ml FLUSH ASDIRECTED PRN PRN Reason: Keep Vein Open Sodium Chloride (Sodium Chloride 0.9% 2.5 Ml Syringe) 2.5 ml FLUSH ASDIRECTED PRN PRN Reason: Keep Vein Open Tramadol HCl (Tramadol 50 Mg Tab) 50 - 100 mg PO Q6H PRN PRN Reason: Pain Discontinued Medications Albuterol (Albuterol 0.083% 2.5 Mg/3 Ml Neb Soln) 2.5 mg NEB ONETIME PRN PRN Reason: Wheezing Bupivacaine HCl (Bupivacaine 0.5% 30 Ml Sdv) Confirm Administered Dose 60 ml .ROUTE .STK-MED ONE Stop: 01/25/21 08:59 Dexamethasone (Dexamethasone 4 Mg/Ml 5 Ml Mdv) Confirm Administered Dose 20 mg .ROUTE .STK-MED ONE Stop: 01/25/21 08:46 Dexmedetomidine HCl (Dexmedetomidine 200 Mcg/2 Ml Sdv) Confirm Administered Dose 200 mcg .ROUTE .STK-MED ONE Stop: 01/25/21 08:46 Droperidol (Droperidol 5 Mg/2 Ml Sdv) 0.625 mg IVPUSH ONETIME PRN PRN Reason: Nausea/Vomiting Epinephrine HCl (Epinephrine 1 Mg/Ml Sdv) Confirm Administered Dose 1 mg .ROUTE .STK-MED ONE Stop: 01/25/21 08:47 Famotidine (Famotidine 20 Mg/2 Ml Sdv) Confirm Administered Dose 40 mg .ROUTE .STK-MED ONE Stop: 01/25/21 07:50 Fentanyl (Fentanyl 100 Mcg/2 Ml Sdv) 50 mcg IVPUSH Q5M PRN PRN Reason: Pain (mild 1-3) Glycopyrrolate (Glycopyrrolate 0.2 Mg/Ml Sdv) Confirm Administered Dose 0.2 mg .ROUTE .STK-MED ONE Stop: 01/25/21 08:46 Hydromorphone HCl (Hydromorphone 2 Mg/Ml Syringe) 1 mg IVPUSH Q10M PRN PRN Reason: Pain (moderate 4-6) Tranexamic Acid 1,000 mg/ (Sodium Chloride) 110 mls @ 600 mls/hr IV ASDIRECTED ONE Stop: 01/25/21 08:10 Last Admin: 01/25/21 14:42 Dose: Not Given Documented by: Acetaminophen (Ofirmev 1000 Mg/100 Ml) Confirm Administered Dose 100 mls @ as directed .ROUTE .STK-MED ONE Stop: 01/25/21 08:46 Propofol (Diprivan 100 Ml) Confirm Administered Dose 100 mls @ as directed .ROUTE .STK-MED ONE Stop: 01/25/21 08:46 Sodium Chloride (Normal Saline) Confirm Administered Dose 20 mls @ as directed .ROUTE .STK-MED ONE Stop: 01/25/21 08:53 Cefazolin Sodium/Dextrose (Ancef 2 Gm/50 Ml) Confirm Administered Dose 50 mls @ as directed .ROUTE .STK-MED ONE Stop: 01/25/21 10:36 Cefazolin Sodium/Dextrose 2 gm (/ Premix) 50 mls @ 100 mls/hr IV Q8H CL Stop: 01/26/21 03:29 Last Admin: 01/26/21 02:06 Dose: 100 mls/hr Documented by: Lactated Ringer's (Ringers, Lactated) 1,000 mls @ 999 mls/hr IV .BOLUS ONE Stop: 01/25/21 15:56 Last Admin: 01/25/21 15:24 Dose: 999 mls/hr Documented by: Lactated Ringer's (Ringers, Lactated) 500 mls @ 999 mls/hr IV .BOLUS ONE Stop: 01/25/21 16:58 Last Admin: 01/25/21 18:17 Dose: 999 mls/hr Documented by: Ketamine HCl (Ketamine 500 Mg/10 Ml Mdv) Confirm Administered Dose 500 mg .ROUTE .[employer]-MED ONE Stop: 01/25/21 08:47 Ketorolac Tromethamine (Ketorolac 30 Mg/Ml Sdv) Confirm Administered Dose 30 mg .ROUTE .[employer]-MED ONE Stop: 01/25/21 08:46 Ketorolac Tromethamine (Ketorolac 30 Mg/Ml Sdv) 30 mg IVPUSH Q6H CL Stop: 01/26/21 05:00 Last Admin: 01/26/21 01:38 Dose: 30 mg Documented by: Lidocaine HCl (Lidocaine 1% 5 Ml Sdv) Confirm Administered Dose 10 ml .ROUTE .[employer]-MED ONE Stop: 01/25/21 08:46 Metoclopramide HCl (Metoclopramide 10 Mg/2 Ml Sdv) 10 mg IVPUSH ONETIME PRN PRN Reason: Nausea/Vomiting Metoclopramide HCl (Metoclopramide 10 Mg/2 Ml Sdv) Confirm Administered Dose 10 mg .ROUTE .[employer]-MED ONE Stop: 01/25/21 08:46 Morphine Sulfate (Morphine 10 Mg/Ml Syringe) 2 mg IVPUSH Q10M PRN PRN Reason: Pain (severe 7-10) Morphine Sulfate (Morphine 10 Mg/Ml Syringe) Confirm Administered Dose 10 mg .ROUTE .[employer]-MED ONE Stop: 01/25/21 09:00 Naloxone HCl (Naloxone 0.4 Mg/Ml Syringe) 0.1 mg IVPUSH ASDIRECTED PRN PRN Reason: Respiratory Depression Ondansetron HCl (Ondansetron 4 Mg/2 Ml Sdv) 4 mg IVPUSH ONETIME PRN PRN Reason: Nausea/Vomiting Ondansetron HCl (Ondansetron 4 Mg/2 Ml Sdv) Confirm Administered Dose 4 mg .ROUTE .[employer]-MED ONE Stop: 01/25/21 08:46 Tranexamic Acid (Tranexamic Acid 1,000 Mg/10 Ml Amp) Confirm Administered Dose 2,000 mg .ROUTE .[employer] ONE Stop: 01/25/21 10:25 - Exam General: Alert, Oriented, Cooperative, No Acute Distress Lungs: Clear to Auscultation, Normal Respiratory Effort Cardiovascular: Regular Rate, Regular Rhythm GI/Abdominal Exam: Normal Bowel Sounds, Soft, Non-Tender Extremities: Normal Inspection, Normal Range of Motion, Non-Tender Wound/Incisions: Healing Well Neurological: No New Focal Deficit Psy/Mental Status: Alert, Normal Affect, Normal Mood Sepsis Event Note - Evaluation Sepsis Screening Result: No Definite Risk - Focused Exam Vital Signs: Vital Signs Temp Pulse Resp BP Pulse Ox 01/26/21 07:32 96.5 F L 57 L 20 112/54 L 94 L 01/26/21 02:00 97.9 F 61 20 120/70 92 L 01/25/21 22:32 97.6 F 82 20 122/57 L 95 Consult PN Assessment/Plan POD#: 1 Procedures: Procedures ASSAY THYROID STIM HORMONE (12/13/20) COLONOSCOPY AND BIOPSY (01/23/19) COMP SCREEN MAMMOGRAM ADD-ON (08/04/15) COMPLETE CBC AUTOMATED (01/02/21) COMPREHEN METABOLIC PANEL (12/13/20) CULTURE OTHR SPECIMN AEROBIC (01/02/21) DXA BONE DENSITY AXIAL (01/18/21) GLYCOSYLATED HEMOGLOBIN TEST (01/02/21) HT MUSCLE IMAGE SPECT MULT (08/04/15) LIPID PANEL (12/13/20) METABOLIC PANEL TOTAL CA (01/02/21) MRI JNT OF LWR EXTRE W/O DYE (01/18/20) PROTHROMBIN TIME (01/02/21) ROUTINE VENIPUNCTURE (01/02/21) SCR MAMMO BI INCL CAD (12/04/18) UR ALBUMIN SEMIQUANTITATIVE (12/20/16) URINALYSIS AUTO W/O SCOPE (01/02/21) X-RAY EXAM CHEST 2 VIEWS (01/02/21) X-RAY EXAM KNEE 4 OR MORE (12/21/16) X-RAY EXAM OF KNEE 1 OR 2 (12/13/20) X-RAY EXAM OF KNEE 3 (01/07/20) (1) DM type 2 (diabetes mellitus, type 2) SNOMED Code(s): 76225101 Code(s): E11.9 - TYPE 2 DIABETES MELLITUS WITHOUT COMPLICATIONS Current V isit: Yes (2) Status post total knee replacement SNOMED Code(s): 9737335840896, 889198666, 0600426554637 Code(s): Z96.659 - PRESENCE OF UNSPECIFIED ARTIFICIAL KNEE JOINT Current Visit: Yes (3) Obesity SNOMED Code(s): 646935302, 588755599 Code(s): E66.9 - OBESITY, UNSPECIFIED Current Visit: Yes (4) Hypothyroidism SNOMED Code(s): 16197696 Code(s): E03.9 - HYPOTHYROIDISM, UNSPECIFIED Current Visit: Yes (5) HTN (hypertension) SNOMED Code(s): 76472461 Code(s): I10 - ESSENTIAL (PRIMARY) HYPERTENSION Current Visit: Yes Qualifiers: Hypertension type: essential hypertension Problem List Initiated/Reviewed/Updated: Yes My Orders Last 24 Hours: My Active Orders 01/25/21 14:41 Blood Glucose Check, Bedside [RC] TIDAC Dextrose 50% in Water 50 ml IVPUSH ASDIRECTED PRN Glucagon,Human Recombinant [GlucaGen] 1 mg IM ASDIRECTED PRN 01/25/21 17:00 Insulin Aspart [NovoLOG] See Protocol SUBCUT TIDAC 01/26/21 07:00 Levothyroxine 75 mcg PO Q2D@0700 01/27/21 07:00 Levothyroxine [Synthroid] 50 mcg PO Q2D@0700 Plan: This 65-year female admitted with right total knee replacement hospitalist consulted for medical management 1. Status post right total knee replacement -Orders per orthopedic team 2. DM type II -Well-controlled at home on Metformin and diet control A1c 6.9 -Hold Metformin while in hospital educated that she can restart this upon discharge -NovoLog sliding scale low-dose as needed with each meal -ADA diet 3. Hypertension -Hypotension improved. -Hold antihypertensive medications at this time. 4. Hypothyroidism: Patient takes levothyroxine 50 mcg every other day followed by 75 mcg the other days -Stable VTE prophylaxis: Aspirin would recommend from pharmacologic agent when deemed appropriate by orthopedics CODE STATUS: Full code
--- NOTE | 2021-01-26 13:59 | PCM.SN.2 ---
- Free Text/Narrative Note: Orthopedic surgery note Postoperative day #1 from rightt total knee replacement Patient is doing well and pain is well-managed Dressing intact Plan: Patient has been seen by physical therapy and feel that it is safe for discharge. She will have outpatient physical therapy according the total knee with positive protocol. Patient will use EC aspirin daily for venous thromboembolus prophylaxis for 90 days Patient is weightbearing as tolerated on right lower extremity with a walker and she has her own walker, walker prescription given. Patient will use ibuprofen, acetaminophen, and oxycodone for pain management She will be on oral prophylactic antibiotics because of her BMI and diabetes to help prevent infection. Patient is clear for discharge.
--- NOTE | 2021-01-26 14:06 | PCM.DCSUM1 ---
Discharge Summary - Hospital Course Brief History: Patient is a 65-year-old female with severe grade 4 right knee osteoarthritis. Patient failed optimal medical management. We discussed the risks and benefits of total knee replacement surgery and the patient wished to proceed with surgery. Patient was medically cleared for surgery. Diagnosis: Stroke: No - Discharge Data Discharge Date: 01/26/21 Discharge Disposition: Home, Self-Care 01 Condition: Good - Referral to Home Health Primary Care Physician: JERONIMO Umaña - Patient Summary/Data Operative Procedure(s) Performed: Right total knee replacement using [employer] knee system Complications: None Consults: Consultations 01/25/21 13:24 Consult to Physician [CONS] Routine PT Evaluation and Treatment [CONS] Routine - Patient Instructions Diet: Diabetic Diet Activity: Apply Ice (use PolarCare ice pad often to your knee to minimize swelling and reduce pain), Elevate Extremity (When elevating your knee, place pillow(s) under your heel or calf. Please do NOT place pillow under your knee.), No Strenuous Activities Activity, Other: Weight bearing as tolerates right leg. Use Walker when ambulating Driving: Do Not Drive Driving, Other: No driving for 6 weeks. Showering/Bathing: May Shower, No Tub Bathing/Swimming (no hot tubs) Showering/Bathing, Other: You do not need to cover the AquaCell bandage when showering. Notify Provider of: Fever, Increased Pain, Swelling and Redness, Drainage Other/Special Instructions: AquaCell bandage will be applied on your knee before you leave. You will be sent home with a second AquaCell bandage. Please change the dressing after 7 days. This second dressing will be removed at your 2 week clinic appointment. Medications: 1) Aspirin 325mg one tablet daily for 3 months for blood clot prevention. 2) cefadroxil 500mg one tablet twice daily for 7 days - this is an antibiotic, taking for prophylactic treatment. 3) For pain control, take Ibuprofen 800mg three times daily, then, depending on need, can take Tylenol if pain is mild-moderate, or the narcotic pain medication if pain is moderate-severe. Please refer to the KNEE NOTEBOOK (binder) that you received at your optimization visit for additional questions. Call orthopedic clinic with any acute concerns or questions [phone] - Discharge Plan *PRESCRIPTION DRUG MONITORING PROGRAM REVIEWED*: No Prescriptions/Med Rec: Aspirin 325 mg PO DAILY #90 tablet Cefadroxil [Duricef] 500 mg PO BID 7 Days #14 cap Ibuprofen [Motrin] 800 mg PO Q8H #60 tablet Home Medications: Home Meds Cetirizine [ZyrTEC] 10 mg PO DAILY 01/20/19 [History] Cholecalciferol (Vitamin D3) [Vitamin D3] 2,000 units PO DAILY 01/20/19 [History] Krill/Om-3/DHA/EPA/Phospho/Ast [Krill Oil 1,000 mg Softgel] 1 tab PO DAILY 01/20/19 [History] Levothyroxine Sodium [Levoxyl] 50 mcg PO Q2D 01/20/19 [History] Losartan Potassium 100 mg PO DAILY 01/20/19 [History] metFORMIN HCl [Metformin HCl] 1,000 mg PO BID 01/20/19 [History] Areds 2 1 tab PO DAILY 01/19/21 [History] Citalopram Hydrobromide [Celexa] 20 mg PO DAILY 01/19/21 [History] Levothyroxine Sodium [Levoxyl] 50 mcg PO ASDIRECTED 01/19/21 [History] atorvaSTATin Calcium [Atorvastatin Calcium] 20 mg PO DAILY 01/19/21 [History] Aspirin 325 mg PO DAILY #90 tablet 01/25/21 [Rx] Cefadroxil [Duricef] 500 mg PO BID 7 Days #14 cap 01/25/21 [Rx] Ibuprofen [Motrin] 800 mg PO Q8H #60 tablet 01/25/21 [Rx] Levothyroxine 75 mcg PO Q2D 01/25/21 [History] Patient Handouts: Oxycodone tablets or capsules, Ibuprofen Oral Tablets and Capsules, Total Knee Replacement, Care After, [id number], Cefadroxil Tablets or Capsules, Aspirin, ASA oral tablets Referrals: Jacki Le RN [Registered Nurse] - 02/09/21 10:20 am - Discharge Summary/Plan Comment DC Time >30 min.: No Discharge Summary/Plan Comment: Discharge to home with outpatient physical therapy according a total knee arthroplasty protocol Ibuprofen, acetaminophen, and oxycodone for pain medication Enteric-coated aspirin for venous thromboembolism prophylaxis for 90 days Weightbearing as tolerated on right lower extremity with walker as needed for assistive device. - Patient Data Vitals - Most Recent: Last Vital Signs Temp 97.6 F 01/26/21 12:00 Pulse 68 01/26/21 12:00 Resp 22 H 01/26/21 12:00 BP 94/30 L 01/26/21 12:00 Pulse Ox 90 L 01/26/21 12:00 Weight - Most Recent: 232 lb I&O - Last 24 hours: Intake & Output 01/25/21 01/26/21 01/26/21 22:59 06:59 14:59 Intake Total 120 840 Output Total 0 400 Balance 120 440 Lab Results - Last 24 hrs: Laboratory Results - last 24 hr 01/25/21 01/25/21 01/25/21 Range/Units 14:40 14:40 18:14 WBC 9.24 (4.0-11.0) K/uL RBC 3.91 L (4.30-5.90) M/uL Hgb 10.9 L (12.0-16.0) g/dL Hct 34.8 L (36.0-46.0) % MCV 89.0 (80.0-98.0) fL MCH 27.9 (27.0-32.0) pg MCHC 31.3 (31.0-37.0) g/dL RDW Std Deviation 47.4 (28.0-62.0) fl RDW Coeff of Alissa 15 (11.0-15.0) % Plt Count 310 (150-400) K/uL MPV 8.90 (7.40-12.00) fL Neut % (Auto) 91.6 H (48.0-80.0) % Lymph % (Auto) 6.9 L (16.0-40.0) % Aurora % (Auto) 1.1 (0.0-15.0) % Eos % (Auto) 0.2 (0.0-7.0) % Baso % (Auto) 0.2 (0.0-1.5) % Neut # (Auto) 8.5 H (1.4-5.7) K/uL Lymph # (Auto) 0.6 (0.6-2.4) K/uL Aurora # (Auto) 0.1 (0.0-0.8) K/uL Eos # (Auto) 0.0 (0.0-0.7) K/uL Baso # (Auto) 0.0 (0.0-0.1) K/uL Nucleated RBC % 0.0 /100WBC Nucleated RBCs # 0 K/uL Sodium 139 (136-145) mmol/L Potassium 4.9 (3.5-5.1) mmol/L Chloride 104 (98-107) mmol/L Carbon Dioxide 25.0 (21.0-32.0) mmol/L BUN 15 (7.0-18.0) mg/dL Creatinine 1.1 H (0.6-1.0) mg/dL Est Cr Clr Drug Dosing 38.99 mL/min Estimated GFR (MDRD) 50.0 ml/min Glucose 195 H (74-106) mg/dL POC Glucose 182 H (70-99) mg/dL Calcium 8.8 (8.5-10.1) mg/dL Magnesium 2.1 (1.8-2.4) mg/dL 01/26/21 01/26/21 01/26/21 Range/Units 05:35 05:35 11:51 WBC (4.0-11.0) K/uL RBC (4.30-5.90) M/uL Hgb 10.0 L (12.0-16.0) g/dL Hct 31.8 L (36.0-46.0) % MCV (80.0-98.0) fL MCH (27.0-32.0) pg MCHC (31.0-37.0) g/dL RDW Std Deviation (28.0-62.0) fl RDW Coeff of Alissa (11.0-15.0) % Plt Count (150-400) K/uL MPV (7.40-12.00) fL Neut % (Auto) (48.0-80.0) % Lymph % (Auto) (16.0-40.0) % Aurora % (Auto) (0.0-15.0) % Eos % (Auto) (0.0-7.0) % Baso % (Auto) (0.0-1.5) % Neut # (Auto) (1.4-5.7) K/uL Lymph # (Auto) (0.6-2.4) K/uL Aurora # (Auto) (0.0-0.8) K/uL Eos # (Auto) (0.0-0.7) K/uL Baso # (Auto) (0.0-0.1) K/uL Nucleated RBC % /100WBC Nucleated RBCs # K/uL Sodium 132 L (136-145) mmol/L Potassium 5.6 H (3.5-5.1) mmol/L Chloride 100 (98-107) mmol/L Carbon Dioxide 24.5 (21.0-32.0) mmol/L BUN 19 H (7.0-18.0) mg/dL Creatinine 1.2 H (0.6-1.0) mg/dL Est Cr Clr Drug Dosing 35.74 mL/min Estimated GFR (MDRD) 45.2 ml/min Glucose 149 H (74-106) mg/dL POC Glucose 144 H (70-99) mg/dL Calcium 8.3 L (8.5-10.1) mg/dL Magnesium 1.9 (1.8-2.4) mg/dL Med Orders - Current: Current Medications Al Hydroxide/Mg Hydroxide (Aluminum Hydroxide/Magnesium Hydroxide/Simethicone Susp 30 Ml Cup) 30 ml PO Q4H PRN PRN Reason: Indigestion Aspirin (Aspirin 325 Mg Tab.Ec) 325 mg PO DAILY [facility] Last Admin: 01/26/21 09:03 Dose: 325 mg Documented by: Bisacodyl (Bisacodyl 10 Mg Supp) 10 mg RECTAL DAILY PRN PRN Reason: Constipation Cefadroxil (Cefadroxil 500 Mg Cap) 500 mg PO BID [facility] Stop: 02/02/21 09:01 Last Admin: 01/26/21 10:05 Dose: 500 mg Documented by: Dextrose/Water (50% Dextrose In Water 50 Ml Syringe) 50 ml IVPUSH ASDIRECTED PRN PRN Reason: Hypoglycemia Diphenhydramine HCl (Diphenhydramine 25 Mg Cap) 25 - 50 mg PO Q6H PRN PRN Reason: Itching Docusate Sodium (Docusate Sodium 100 Mg Cap) 100 mg PO Q12HR PRN PRN Reason: Constipation Famotidine (Famotidine 20 Mg/2 Ml Sdv) 40 mg IVPUSH ONARRIVE [facility] Last Admin: 01/25/21 09:10 Dose: 40 mg Documented by: Famotidine (Famotidine 20 Mg Tab) 40 mg PO DAILY [facility] Last Admin: 01/26/21 09:08 Dose: 40 mg Documented by: Glucagon (Glucagon,Human Recombinant 1 Mg Vial) 1 mg IM ASDIRECTED PRN PRN Reason: Hypoglycemia Ropivacaine 49.25 ml/Ketorolac Tromethamine 30 mg/Epinephrine HCl 0.5 mg/Clonidine HCl 80 mcg/ Sodium Chloride 75 mls @ 50 mls/sec INJECT ASDIRECTED [facility] Cefazolin Sodium/Dextrose 2 gm (/ Premix) 50 mls @ 100 mls/hr IV ONCALL [facility] Lactated Ringer's (Ringers, Lactated) 1,000 mls @ 100 mls/hr IV ASDIRECTED [facility] Last Admin: 01/25/21 15:50 Dose: 100 mls/hr Documented by: Ibuprofen (Ibuprofen 800 Mg Tab) 800 mg PO Q8H [facility] Last Admin: 01/26/21 09:03 Dose: 800 mg Documented by: Insulin Aspart (Insulin Aspart 100 Units/Ml 3 Ml Pen) 0 unit SUBCUT TIDAC [facility]; Protocol Last Admin: 01/26/21 12:32 Dose: Not Given Documented by: Levothyroxine Sodium (Levothyroxine 75 Mcg Tab) 75 mcg PO Q2D@0700 [facility] Last Admin: 01/26/21 06:51 Dose: 75 mcg Documented by: Levothyroxine Sodium (Levothyroxine 50 Mcg Tab) 50 mcg PO Q2D@0700 [facility] Morphine Sulfate (Morphine 2 Mg/Ml Syringe) 1 - 2 mg IVPUSH Q3H PRN PRN Reason: Pain Last Admin: 01/25/21 23:30 Dose: 2 mg Documented by: Ondansetron HCl (Ondansetron 4 Mg/2 Ml Sdv) 4 mg IVPUSH Q6H PRN PRN Reason: Nausea/Vomiting Oxycodone HCl (Oxycodone 5 Mg Tab) 5 - 10 mg PO Q4H PRN PRN Reason: Pain Last Admin: 01/26/21 12:08 Dose: 5 mg Documented by: Polyethylene Glycol (Polyethylene Glycol 3350 Powder 17 Gm Packet) 17 gm PO DAILY [facility] Last Admin: 01/26/21 09:08 Dose: Not Given Documented by: Scopolamine (Scopolamine 1.5 Mg Transdermal Patch) 1.5 mg TRDERM ONARRIVE [facility] Last Admin: 01/25/21 09:08 Dose: 1.5 mg Documented by: Sodium Chloride (Sodium Chloride 0.9% 10 Ml Syringe) 10 ml FLUSH ASDIRECTED PRN PRN Reason: Keep Vein Open Sodium Chloride (Sodium Chloride 0.9% 2.5 Ml Syringe) 2.5 ml FLUSH ASDIRECTED PRN PRN Reason: Keep Vein Open Tramadol HCl (Tramadol 50 Mg Tab) 50 - 100 mg PO Q6H PRN PRN Reason: Pain Discontinued Medications Albuterol (Albuterol 0.083% 2.5 Mg/3 Ml Neb Soln) 2.5 mg NEB ONETIME PRN PRN Reason: Wheezing Bupivacaine HCl (Bupivacaine 0.5% 30 Ml Sdv) Confirm Administered Dose 60 ml .ROUTE .STK-MED ONE Stop: 01/25/21 08:59 Dexamethasone (Dexamethasone 4 Mg/Ml 5 Ml Mdv) Confirm Administered Dose 20 mg .ROUTE .STK-MED ONE Stop: 01/25/21 08:46 Dexmedetomidine HCl (Dexmedetomidine 200 Mcg/2 Ml Sdv) Confirm Administered Dose 200 mcg .ROUTE .STK-MED ONE Stop: 01/25/21 08:46 Droperidol (Droperidol 5 Mg/2 Ml Sdv) 0.625 mg IVPUSH ONETIME PRN PRN Reason: Nausea/Vomiting Epinephrine HCl (Epinephrine 1 Mg/Ml Sdv) Confirm Administered Dose 1 mg .ROUTE .STK-MED ONE Stop: 01/25/21 08:47 Famotidine (Famotidine 20 Mg/2 Ml Sdv) Confirm Administered Dose 40 mg .ROUTE .STK-MED ONE Stop: 01/25/21 07:50 Fentanyl (Fentanyl 100 Mcg/2 Ml Sdv) 50 mcg IVPUSH Q5M PRN PRN Reason: Pain (mild 1-3) Glycopyrrolate (Glycopyrrolate 0.2 Mg/Ml Sdv) Confirm Administered Dose 0.2 mg .ROUTE .STK-MED ONE Stop: 01/25/21 08:46 Hydromorphone HCl (Hydromorphone 2 Mg/Ml Syringe) 1 mg IVPUSH Q10M PRN PRN Reason: Pain (moderate 4-6) Tranexamic Acid 1,000 mg/ (Sodium Chloride) 110 mls @ 600 mls/hr IV ASDIRECTED ONE Stop: 01/25/21 08:10 Last Admin: 01/25/21 14:42 Dose: Not Given Documented by: Acetaminophen (Ofirmev 1000 Mg/100 Ml) Confirm Administered Dose 100 mls @ as directed .ROUTE .STK-MED ONE Stop: 01/25/21 08:46 Propofol (Diprivan 100 Ml) Confirm Administered Dose 100 mls @ as directed .ROUTE .STK-MED ONE Stop: 01/25/21 08:46 Sodium Chloride (Normal Saline) Confirm Administered Dose 20 mls @ as directed .ROUTE .STK-MED ONE Stop: 01/25/21 08:53 Cefazolin Sodium/Dextrose (Ancef 2 Gm/50 Ml) Confirm Administered Dose 50 mls @ as directed .ROUTE .STK-MED ONE Stop: 01/25/21 10:36 Cefazolin Sodium/Dextrose 2 gm (/ Premix) 50 mls @ 100 mls/hr IV Q8H [facility] Stop: 01/26/21 03:29 Last Admin: 01/26/21 02:06 Dose: 100 mls/hr Documented by: Lactated Ringer's (Ringers, Lactated) 1,000 mls @ 999 mls/hr IV .BOLUS ONE Stop: 01/25/21 15:56 Last Admin: 01/25/21 15:24 Dose: 999 mls/hr Documented by: Lactated Ringer's (Ringers, Lactated) 500 mls @ 999 mls/hr IV .BOLUS ONE Stop: 01/25/21 16:58 Last Admin: 01/25/21 18:17 Dose: 999 mls/hr Documented by: Ketamine HCl (Ketamine 500 Mg/10 Ml Mdv) Confirm Administered Dose 500 mg .ROUTE .STK-MED ONE Stop: 01/25/21 08:47 Ketorolac Tromethamine (Ketorolac 30 Mg/Ml Sdv) Confirm Administered Dose 30 mg .ROUTE .STK-MED ONE Stop: 01/25/21 08:46 Ketorolac Tromethamine (Ketorolac 30 Mg/Ml Sdv) 30 mg IVPUSH Q6H [facility] Stop: 01/26/21 05:00 Last Admin: 01/26/21 01:38 Dose: 30 mg Documented by: Lidocaine HCl (Lidocaine 1% 5 Ml Sdv) Confirm Administered Dose 10 ml .ROUTE .STK-MED ONE Stop: 01/25/21 08:46 Metoclopramide HCl (Metoclopramide 10 Mg/2 Ml Sdv) 10 mg IVPUSH ONETIME PRN PRN Reason: Nausea/Vomiting Metoclopramide HCl (Metoclopramide 10 Mg/2 Ml Sdv) Confirm Administered Dose 10 mg .ROUTE .STK-MED ONE Stop: 01/25/21 08:46 Morphine Sulfate (Morphine 10 Mg/Ml Syringe) 2 mg IVPUSH Q10M PRN PRN Reason: Pain (severe 7-10) Morphine Sulfate (Morphine 10 Mg/Ml Syringe) Confirm Administered Dose 10 mg .ROUTE .STAzuki (Vozero/Gengibre)-MED ONE Stop: 01/25/21 09:00 Naloxone HCl (Naloxone 0.4 Mg/Ml Syringe) 0.1 mg IVPUSH ASDIRECTED PRN PRN Reason: Respiratory Depression Ondansetron HCl (Ondansetron 4 Mg/2 Ml Sdv) 4 mg IVPUSH ONETIME PRN PRN Reason: Nausea/Vomiting Ondansetron HCl (Ondansetron 4 Mg/2 Ml Sdv) Confirm Administered Dose 4 mg .RO LOUISA .STAzuki (Vozero/Gengibre)-MED ONE Stop: 01/25/21 08:46 Tranexamic Acid (Tranexamic Acid 1,000 Mg/10 Ml Amp) Confirm Administered Dose 2,000 mg .ROUTE .[employer]-MED ONE Stop: 01/25/21 10:25
[2021-01-27] MEDS ORDERED: Levothyroxine 50 MCG Tab PO SCH (07:00)
== END 2021-01-26 15:10 | disposition home or self-care (01) | DRG 470 ==
LOC: MW.SDS 08:30 → MW.MS 14:13
PROVIDERS: ADMIT Orthopaedic Surgery; ATTEND Orthopaedic Surgery
PROC: 0SRC0J9 Replacement of Right Knee Joint with Synthetic Substitute, Cemented, Open Approach (ICD-10-PCS; principal; 2021-01-25)
DX: M17.11 Unilateral primary osteoarthritis, right knee (principal); Z68.41 Body mass index [BMI] 40.0-44.9, adult; F32.9 Major depressive disorder, single episode, unspecified; E66.9 Obesity, unspecified; I10 Essential (primary) hypertension; E03.9 Hypothyroidism, unspecified; G47.00 Insomnia, unspecified; E78.5 Hyperlipidemia, unspecified; K58.9 Irritable bowel syndrome, unspecified; D12.6 Benign neoplasm of colon, unspecified; E11.9 Type 2 diabetes mellitus without complications; D64.9 Anemia, unspecified; J45.909 Unspecified asthma, uncomplicated; K21.9 Gastro-esophageal reflux disease without esophagitis; M54.9 Dorsalgia, unspecified; G89.29 Other chronic pain; F41.9 Anxiety disorder, unspecified; Z79.890 Hormone replacement therapy; Z79.899 Other long term (current) drug therapy; Z79.84 Long term (current) use of oral hypoglycemic drugs; Z90.710 Acquired absence of both cervix and uterus; Z98.890 Other specified postprocedural states
CPT/HCPCS: 01402; 36415; 73560-26-RT; 73560-RT; 80048; 82947; 83735; 85014; 85018; 85025; 86850; 86900; 86901; 97162-GP; A9270-GY; J0131; J0171; J0690; J0735; J1100; J1885; J2270; J2405; J2704; J2765; J2795; J3490; J7120

== ENCOUNTER 2024-02-23 11:22 | Emergency (ER) | payer MEDICARE, OTHER | END 2024-02-23 12:26 | disposition home or self-care (01) | LOC: MW.ED 11:22 | DX: K04.7 Periapical abscess without sinus (principal); E03.9 Hypothyroidism, unspecified; I10 Essential (primary) hypertension; E11.9 Type 2 diabetes mellitus without complications; E66.9 Obesity, unspecified; Z68.41 Body mass index [BMI] 40.0-44.9, adult; Z79.899 Other long term (current) drug therapy; Z90.710 Acquired absence of both cervix and uterus | CPT/HCPCS: 99282; 99283 ==

== ENCOUNTER 2024-04-24 07:27 | Day surgery (SDC) | payer MEDICARE, OTHER ==
[2024-04-24] MEDS: Lactated Ringers 1,000 ML IV SCH (07:50)
[2024-04-24] MEDS ORDERED: Lidocaine 2% 5 ML SDV ONE (08:36)
[2024-04-24] MEDS ORDERED: propofoL 50 ML ONE (08:36)
[2024-04-24] MEDS ORDERED: Lactated Ringers 1,000 ML IV SCH (09:45)
== END 2024-04-24 10:07 | disposition home or self-care (01) ==
LOC: MW.SDS 07:27
PROVIDERS: ATTEND Surgery
DX: Z12.11 Encounter for screening for malignant neoplasm of colon (principal); I10 Essential (primary) hypertension; E03.9 Hypothyroidism, unspecified; G47.33 Obstructive sleep apnea (adult) (pediatric); E66.9 Obesity, unspecified; E11.9 Type 2 diabetes mellitus without complications; F41.8 Other specified anxiety disorders; D64.9 Anemia, unspecified; Z68.41 Body mass index [BMI] 40.0-44.9, adult; Z79.890 Hormone replacement therapy; Z79.899 Other long term (current) drug therapy; Z86.010 Personal history of colon polyps
CPT/HCPCS: 45378; 82947; J2704; J7120; J3490